=== PATIENT | female | born 1985 | race Caucasian/White ===

== ENCOUNTER 2023-02-03 17:03 | Emergency (ER) | payer OTHER, SELFPAY ==
[2023-02-03 17:22] VITALS: BP 155/82; PULSE 58; RESP 15; TEMP 36.5; O2SAT 99; BMI 24.4
[2023-02-03] MEDS: ONDANSETRON 2 MG/ML inj 4 MG IVP (18:19)
[2023-02-03] MEDS: KETOROLAC 30 MG/ML inj IVP (18:19)
[2023-02-03] MEDS: 0.9 % SODIUM CHLORIDE 1000 ml 1,000 ML IV (18:19)
[2023-02-03 18:29] LABS: Albumin* 4.3 g/dL (3.3-5.0); Chloride* 106 mmol/L (96-114); Sodium* 139 mmol/L (135-149)
[2023-02-03 18:30] LABS: Potassium* 3.9 mmol/L (3.6-5.1)
[2023-02-03 18:32] LABS: Bilirubin Direct* 0.3 mg/dL (0.0-0.5); Bilirubin Total* 0.4 mg/dL (0.1-1.5); Carbon Dioxide* 25 mmol/L (20-32); Creatinine* 0.7 mg/dL (0.5-1.5); Est. Creatinine Clearance* 81.42; Estimated Glomerular Filt Rate 113 ml/min; Total Protein* 7.4 g/dL (6.0-8.3)
[2023-02-03 18:33] LABS: Alanine Aminotransferase* 32 U/L (4-35); Alkaline Phosphatase* 105 U/L (40-150); Aspartate Amino Transferase* 58 U/L (12-35); Blood Urea Nitrogen* 16 mg/dL (5-24); Calcium* 9.3 mg/dL (8.4-10.6); Glucose* 102 mg/dL (60-115); Lipase* 72 U/L (23-300)
[2023-02-03 18:35] LABS: C Reactive Protein* 2.6 mg/dL (0.5-1.0)
--- NOTE | 2023-02-03 21:49 | ED.ABDPAIN ---
HPI - Abdominal Pain General Date Seen: 02/03/23 Chief Complaint: Abdominal Pain Stated Complaint: Abdominal Pain Time Seen by Provider: 02/03/23 17:24 Source: patient and family Mode of arrival: ambulatory Limitations: no limitations History of Present Illness HPI narrative: Patient is a very nice 38-year-old female who is seen in room 7, she has had own off epigastric discomfort right upper quadrant discomfort for approximately 2-3 months, after she delivered a child, she describes it as coming and going, some radiation to her back associated with this, no real association with food, denies any fevers chills or sweats, normal bowel movements, no dysuria frequency no vaginal discharge, and no CVA tenderness. She has had no cough cold-like symptoms, and her appetite has been normal. Saw her primary who recommended that she see GI and she has an appointment upcoming in February to see them. Only prior past history of operations include x2. She is describes the pain as cramping at times, and then relieving. No radiation MD elicited complaint: abdominal pain Pertinent past history: none Related Data Patient : No Home Medications Medication Instructions Recorded Confirmed No Known Home Medications 02/03/23 02/03/23 Allergies Allergy/AdvReac Type Severity Reaction Status Date / Time No Known Drug Allergies Allergy Verified 02/03/23 17:21 Review of Systems Status of ROS Reports: 10 or more systems reviewed and unremarkable except as noted in History and below [facility] Social History Smoking Status: Unknown if ever smoked Second hand tobacco smoke exposure: No How often do you have a drink containing alcohol: never How often do you have six or more drinks on one occasion: Never AUDIT-C Alcohol total score: 0 Non-prescribed substance use: denies use service: No Exam Narrative: Exam Narrative: Patient is speaking normally,no problem with slurring words, oriented x3. Head eyes ears nose and throat exam show equal pupils, no scleral icterus, extraocular muscles are normal, no facial droop, speech is normal, trachea normal and midline. Thyroid normal midline palpable not enlarged. Chest shows symmetrical rise bilaterally, normal auscultation with no wheezes, no increased work of breathing, no overt bruising or lesions seen, no tenderness is noted on auscultation. Heart sounds normal with no S3-S4 no murmurs clicks or gallops. Abdomen shows no obvious masses or hepatosplenomegaly, no organomegaly, bowel sounds are normal in all quadrants. She is tender in her right upper quadrant on moderate palpation, no masses are noted.. Upper and lower extremities show normal power, normal range of motion, pulses are normal, sensations normal, fine motor movements are normal, pelvis is stable to rocking. Cervical spine shows normal range of motion, and palpably not tender. Thoracic spine shows normal range of motion, and palpably not tender, lumbar spine shows no tenderness to palpation percussion and is otherwise normal range of motion. Skin shows no rashes, petechiae or eccymosis. Const: Vital Signs, click to edit/add: Vital Signs - 24 hr 02/03/23 17:22 Temperature 97.7 F Pulse Rate [Pulse Oximeter] 58 L Respiratory Rate 15 Blood Pressure [Ri ght Upper Arm] 155/82 H Pulse Oximetry 99 Oxygen Delivery Me thod Room Air Documenting provider has reviewed patient's vital signs: yes Course Course Hospital Course: Point of care ultrasound was done, showing shadowing, consistent with stones, or possible polyps in her gallbladder, there is no pericholecystic fluid, the gallbladder wall was not thickened, I was not able to see the common bile duct very well, due to overlying gas. She had a negative ultrasonographic Hopkins's test when I examined her. Review of her laboratory work, no clear cause of her abdominal pain. Would recommend that she get an outpatient formal ultrasound, given what were finding here, she could also consider starting omeprazole, for this discomfort, GI consult would be an excellent idea, low-fat diet, and return here if increasing fevers chills sweats or other issues, she was comfortable with this. Vital Signs Vital signs: Initial Vital Signs Temperature 97.7 F 02/03/23 17:22 Temperature Source Temporal Artery Scan 02/03/23 17:22 Pulse Rate 58 L 02/03/23 17:22 Respiratory Rate 15 02/03/23 17:22 Blood Pressure 155/82 H 02/03/23 17:22 Blood Pressure Mean 106 02/03/23 17:22 Pulse Oximetry 99 02/03/23 17:22 Oxygen Delivery Method Room Air 02/03/23 17:22 Vital Signs Temperature 97.7 F 02/03/23 17:22 Pulse Rate 58 L 02/03/23 17:22 Respiratory Rate 15 02/03/23 17:22 Blood Pressure 155/82 H 02/03/23 17:22 Pulse Oximetry 99 02/03/23 17:22 Oxygen Delivery Method Room Air 02/03/23 17:22 Temperature 97.7 F 02/03/23 17:22 Pulse Rate 58 L 02/03/23 17:22 Respiratory Rate 15 02/03/23 17:22 Blood Pressure 155/82 H 02/03/23 17:22 Pulse Oximetry 99 02/03/23 17:22 Oxygen Delivery Method Room Air 02/03/23 17:22 MDM - Abdominal Pain MDM Narrative Medical decision making narrative: During the evaluation of this patient I considered multiple differential diagnosis including life-threatening differentials which are appendicitis, aortic aneurysm, mesenteric ischemia, bowel perforation, ectopic , volvulus and bowel obstruction, other differential diagnosis include but are not limited to inflammatory bowel disease, cholecystitis, pancreatitis, hepatitis, gastritis, GERD, diverticulitis, peptic ulcer disease, pyelonephritis/UTI, renal colic/stone, pelvic inflammatory disease, cervicitis, endometritis, intrauterine , dysfunctional uterine bleeding, ovarian cyst/torsion, spontaneous as well as other etiologies Medical Records Attestation: I reviewed the patient's medical records. Lab Data Attestation: I reviewed the patient's lab results. Labs: Lab Results 02/03/23 02/03/23 02/03/23 Range/Units 18:00 18:00 18:00 Sodium 139 (135-149) mmol/L Potassium 3.9 (3.6-5.1) mmol/L Chloride 106 (96-114) mmol/L Carbon Dioxide 25 (20-32) mmol/L BUN 16 (5-24) mg/dL Creatinine 0.7 (0.5-1.5) mg/dL Estimated Creat Clear 81.42 Estimated GFR 113 ml/min Glucose 102 (60-115) mg/dL Calcium 9.3 (8.4-10.6) mg/dL Total Bilirubin 0.4 Cancelled (0.1-1.5) mg/dL Direct Bilirubin 0.3 Cancelled (0.0-0.5) mg/dL AST 58 H (12-35) U/L ALT (4-35) U/L Alkaline Phosphatase (40-150) U/L C-Reactive Protein (0.5-1.0) mg/dL Total Protein (6.0-8.3) g/dL Albumin (3.3-5.0) g/dL Lipase (23-300) U/L 02/03/23 02/03/23 02/03/23 Range/Units 18:00 18:00 18:00 Sodium (135-149) mmol/L Potassium (3.6-5.1) mmol/L Chloride (96-114) mmol/L Carbon Dioxide (20-32) mmol/L BUN (5-24) mg/dL Creatinine (0.5-1.5) mg/dL Estimated Creat Clear Estimated GFR ml/min Glucose (60-115) mg/dL Calcium (8.4-10.6) mg/dL Total Bilirubin (0.1-1.5) mg/dL Direct Bilirubin (0.0-0.5) mg/dL AST Cancelled (12-35) U/L ALT 32 Cancelled (4-35) U/L Alkaline Phosphatase 105 Cancelled (40-150) U/L C-Reactive Protein 2.6 H (0.5-1.0) mg/dL Total Protein (6.0-8.3) g/dL Albumin (3.3-5.0) g/dL Lipase (23-300) U/L 02/03/23 02/03/23 02/03/23 Range/Units 18:00 18:00 18:00 Sodium (135-149) mmol/L Potassium (3.6-5.1) mmol/L Chloride (96-114) mmol/L Carbon Dioxide (20-32) mmol/L BUN (5-24) mg/dL Creatinine (0.5-1.5) mg/dL Estimated Creat Clear Estimated GFR ml/min Glucose (60-115) mg/dL Calcium (8.4-10.6) mg/dL Total Bilirubin (0.1-1.5) mg/dL Direct Bilirubin (0.0-0.5) mg/dL AST (12-35) U/L ALT (4-35) U/L Alkaline Phosphatase (40-150) U/L C-Reactive Protein Cancelled (0.5-1.0) mg/dL Total Protein 7.4 Cancelled (6.0-8.3) g/dL Albumin 4.3 Cancelled (3.3-5.0) g/dL Lipase 72 (23-300) U/L 02/03/23 Range/Units 18:00 Sodium (135-149) mmol/L Potassium (3.6-5.1) mmol/L Chloride (96-114) mmol/L Carbon Dioxide (20-32) mmol/L BUN (5-24) mg/dL Creatinine (0.5-1.5) mg/dL Estimated Creat Clear Estimated GFR ml/min Glucose (60-115) mg/dL Calcium (8.4-10.6) mg/dL Total Bilirubin (0.1-1.5) mg/dL Direct Bilirubin (0.0-0.5) mg/dL AST (12-35) U/L ALT (4-35) U/L Alkaline Phosphatase (40-150) U/L C-Reactive Protein (0.5-1.0) mg/dL Total Protein (6.0-8.3) g/dL Albumin (3.3-5.0) g/dL Lipase Cancelled (23-300) U/L Discharge Plan Discharge Clinical Impression: Abdominal pain, Cholelithiasis Patient Disposition: Home w/ Parent or Adult Condition: Stable Instructions: Gallstones (ED), Abdominal Pain (ED), Laparoscopic Cholecystectomy (DC) Additional Instructions: You appear to have gallstones, or polyps on your ultrasound, you need to formal ultrasound to be certain. This should be done through your primary care physician, and then you can be referred on to a general surgeon. I did give you some medications you can use, please also use a low-fat diet, return here if increasing pain, fevers chills, nausea vomiting, or other issues. Please note that the medications I gave you can be habit-forming, and be judicious and safe when you use these. I know use a year in the [employer] system but I did give you the name of a good primary care physician here next door Activity Level: Light activity Discharge Diet: Low Fat/Low Cholesterol Prescriptions: No Action No Known Home Medications Follow Up/Referrals: Xavier Francois MD [Staff Physician] - Provider,Not a Local [Primary Care Provider] - Stand Alone Forms: [employer] Info Instructions
== END 2023-02-03 19:35 | disposition home or self-care (01) ==
PROVIDERS: Emergency Provider Family Medicine
DX: K80.70 Calculus of gallbladder and bile duct without cholecystitis without obstruction (principal)
CPT/HCPCS: 36415; 80048; 80076; 81001; 83690; 84703; 86140; 96374; 96375; 99284; J1885; J2405; J7030